=== PATIENT | male | born 1975 | race Asian ===

== ENCOUNTER 2019-04-21 20:23 | Emergency (ER) | payer OTHER ==
[~2019-04-21] VITALS: Ht 170.2 cm; Wt 65.8 kg
[2019-04-21] MEDS ORDERED: Norco 5-325 Ta1 EACH PO (23:02)
== END 2019-04-21 23:14 | disposition home or self-care (01) ==
LOC: ER 20:23
DX: S42.021A Displaced fracture of shaft of right clavicle, initial encounter for closed fracture (principal); S22.41XA Multiple fractures of ribs, right side, initial encounter for closed fracture; V86.59XA Driver of other special all-terrain or other off-road motor vehicle injured in nontraffic accident, initial encounter
CPT/HCPCS: 71101; 73030; 99283-25